=== PATIENT | female | born 1950 | race Caucasian/White ===

== ENCOUNTER → 2017-01-24 | Outpatient (CLI) | payer OTHER ==
[~2017-01-24] MED LIST: DIGOXIN125 MCG PO; DOCUSATE SODIU100 MG PO; DULERA 200 MCG/13 GM IH; LOPRESSOR25 MG PO; NICODERM CQ1 EAC1 TD; PERCOCET 5/31 TABLET PO; PROAIR HFA8.5 GM IH; SPIRIVA RESPIMAT4 GM IH; THEOPHYLLINE400 MG PO; TUDORZA PRESS400 MCG IH; TYLENOL EXTRA500 MG PO
== END | disposition home or self-care (01) ==
LOC: RAD 09:27
DX: Z98.890 Other specified postprocedural states (principal); C34.90 Malignant neoplasm of unspecified part of unspecified bronchus or lung
CPT/HCPCS: 71020

== ENCOUNTER → 2018-01-19 | Outpatient (CLI) | payer OTHER | END | disposition home or self-care (01) | LOC: RAD 09:38 | DX: C34.90 Malignant neoplasm of unspecified part of unspecified bronchus or lung (principal) | CPT/HCPCS: 71046 ==